=== PATIENT | male | born 1945 | race Caucasian/White ===

== ENCOUNTER 2018-05-03 09:19 | Day surgery (SDC) | payer OTHER, SELFPAY ==
[2018-05-03 09:42] VITALS: BP 122/70; PULSE 63; RESP 16; TEMP 36.2; O2SAT 99
[2018-05-03] MEDS: SODIUM CHLORIDE 0.9% 1,000 ML 200 ML IV (09:49)
--- NOTE | 2018-05-03 09:58 | PM.HP.1 ---
History of Present Illness Date Patient Seen: 05/03/18 Time Patient Seen: 09:59 Chief complaint: colonoscopy [id number] Narrative: 72-year-old male with personal history of colon polyps approximately 15 years ago but had a follow-up surveillance colonoscopy 10 years ago reportedly normal and presents now for colorectal screening. He has no specific complaints currently. Denies nausea, vomiting, abdominal pain, change in appetite, unintended weight loss, change in bowel habits, diarrhea, constipation, melena, hematochezia, or bright red blood per rectum. 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 (Acute) Depression (Acute) Diverticulosis (Acute) Gastroesophageal reflux disease (Acute) History of Moh's micrographic surgery for skin cancer (Acute) History of cholelithiasis (Acute) History of colon polyps (Acute) History of migraine headaches (Acute) History of nephrolithiasis (Acute) Hypertension (Acute) Premature ventricular contractions (Acute) Presbycusis (Acute) Surgical History History of colonoscopy (Acute) History of tonsillectomy and adenoidectomy (Acute) Status post cholecystectomy (Acute) Family & Social History Family History: Reviewed 05/03/18 by Liang Jerez MD Social History: Non smoker Drinks 3 glasses of wine daily Meds Home Medications Medication Instructions Recorded Confirmed Type lisinopril-hydrochlorothiazide 1.5 tab PO QAM #135 tab 01/22/17 Rx sildenafil (antihypertensive) 20 mg PO SEE INSTRUCTIONS #60 tab 03/10/17 Rx Allergies Allergy/AdvReac Type Severity Reaction Status Date / Time No Known Drug Allergies Allergy Verified 05/03/18 09:42 Review of Systems Review of Systems All systems reviewed & are unremarkable except as noted in HPI and below Exam Vital Signs (past 8 hours): - 05/03/18 09:42 Temperature 97.2 F L Pulse Rate 63 Respiratory Rate 16 Blood Pressure 122/70 H Pulse Oximetry 99 Oxygen Delivery Method Room Air Narrative Exam Narrative: Well-nourished well-developed male in no acute distress. Alert oriented x3. Sclera nonicteric Neck is supple Chest clear to auscultation bilaterally with irregular rhythm. Has an occasional PVC. No murmurs, gallops, rubs. No crackles or wheezes. Abdomen soft, nondistended, nontender, no masses Extremities show no clubbing, cyanosis, or edema Objective Labs Labs: No recent laboratory or radiographic studies for review Assessment & Plan Plan: Assessment/Plan Narrative: 72-year-old male with personal history of colon polyps now requiring colorectal surveillance. I recommend colonoscopy. Technical details of the procedure were discussed. Risks, benefits, alternatives were explained. Risks including but not limited to sedation, aspiration, bleeding, pain, missed lesion, incomplete examination, need for further radiographic studies, colonic perforation, need for major abdominal surgery, and all attendant risks of major surgery were explained in detail. All questions were answered to his satisfaction, and he voiced understanding. Consent was placed on the chart. We will proceed as above.
--- NOTE | 2018-05-03 10:06 | PM.PREOP ---
Pre-operative Note Interval Note Pre-op Check: History & Physical Reviewed by Physician, Exam Performed and History & Physical exam performed today H&P completed within 30 days and has changed as indicated here:: Patient seen and examined today. He has a personal history of colon polyps. He requires colorectal surveillance for such. History physical examination documented and placed on the chart. We will proceed with colonoscopy today as planned. ASA Class (for procedural sedation): II
[2018-05-03] MEDS: MIDAZOLAM 5 MG/5 ML VIAL IV (10:27)
[2018-05-03] MEDS: fentaNYL 250 MCG/5 ML INJ IV (10:27)
--- NOTE | 2018-05-03 10:37 | PM.OP.ENDO ---
Operative Date/Time/Diagnoses Date of procedure: 05/03/18 Time of procedure: 10:37 Post-op diagnosis: other (Diverticulosis but otherwise normal colon and rectum) Procedure & Clinicians Study performed: 1. Sedation per surgeon 2. Colonoscopy Same procedure as scheduled: Yes Indications: 72-year-old male with personal history of colon polyps. It has been at least 10 years since his prior examination. He requires colorectal surveillance. Colonoscopy is once again recommended. Surgeon: Liang Jerez Procedure Notes SCOAP/Timeout: Yes Procedure in detail: After obtaining informed consent, the patient was brought to the GI suite and placed in the left lateral decubitus position on the examination table. After placement of appropriate monitors, the patient was given incremental doses of Versed and Fentanyl until an appropriate level of sedation was achieved. A time out was held per SCOAP protocol. A digital rectal examination was performed and did not reveal any masses or obstructing lesions. The colonoscope was gently passed into the patient's anus and the entire colon navigated to the level of the cecum with minimal difficulty. Once in the cecum, the scope was withdrawn being sure to go before and beyond all mucosal folds and prominences and get an excellent examination. The findings are noted above. At the level of the rectal vault, the scope was retroflexed and the internal anal canal was examined. The scope was straightened and air aspirated from the colon. The instrument was removed from the patient's body and the procedure was concluded. The patient was allowed to awaken from sedation without difficulty and taken to the post-anesthesia care unit in good condition. Scope withdrawal time: 9:30 Min Sedation minutes: 28 Findings: diverticulosis and other findings (Otherwise normal colon and rectum within the limits of a suboptimal bowel preparation at the distal sigmoid colon) Specimen(s): none sent Complications: none Recommendations: Colonscopy in 5 years and High fiber diet Plan for aftercare: 1. Discharge home Follow up: as needed Disposition: PACU
[2018-05-03 10:38] VITALS: BP 110/65; PULSE 80; RESP 15; TEMP 36.4; O2SAT 95
[2018-05-03 10:43] VITALS: BP 107/65; PULSE 66; RESP 13; TEMP 36.4; O2SAT 94
[2018-05-03 10:48] VITALS: BP 103/65; PULSE 74; RESP 14; TEMP 36.4; O2SAT 96
[2018-05-03 10:55] VITALS: BP 106/72; PULSE 69; RESP 18; TEMP 36.3; O2SAT 96
[2018-05-03 11:11] VITALS: BP 107/65; PULSE 66; RESP 16; TEMP 36.9; O2SAT 97
== END 2018-05-03 11:20 | disposition home or self-care (01) ==
PROVIDERS: Visit Provider Surgery
PROC: 0DJD8ZZ Inspection of Lower Intestinal Tract, Via Natural or Artificial Opening Endoscopic (ICD-10-PCS; CPT 45378; principal; 2018-05-03 11:00)
DX: Z86.010 Personal history of colon polyps (principal); K57.30 Diverticulosis of large intestine without perforation or abscess without bleeding; K21.9 Gastro-esophageal reflux disease without esophagitis; I10 Essential (primary) hypertension; F41.9 Anxiety disorder, unspecified
CPT/HCPCS: G0105; 99152; 99153; J2250; J3010

== ENCOUNTER → 2021-07-16 10:37 | Outpatient (CLI) | payer MEDICARE, OTHER, SELFPAY ==
[2021-07-16 20:27] LABS: COVID19 - ORCAS (NP or Nasal) POSITIVE (Negative)
== END ==
PROVIDERS: PCP Family Medicine; Visit Provider Physician Assistant
DX: U07.1 COVID-19 (principal)
CPT/HCPCS: C9803; U0003

== ENCOUNTER → 2021-10-14 08:46 | Outpatient (CLI) | payer MEDICARE, OTHER, SELFPAY ==
[2021-10-14 20:46] LABS: COVID19 - ORCAS (NP or Nasal) Negative (Negative)
== END ==
PROVIDERS: PCP Family Medicine; Visit Provider Family Medicine
DX: U07.1 COVID-19 (principal)
CPT/HCPCS: C9803; U0003

== ENCOUNTER 2021-10-15 11:05 | Day surgery (SDC) | payer MEDICARE, OTHER, SELFPAY ==
--- NOTE | 2021-10-15 | PATH_ITS ---
[facility] Accession Number: [id number] . 01 Material submitted: . PART A: duodenum - DUODENUM BIOPSY PART B: gastrointestinal site - ANTRUM BIOPSY PART C: gastrointestinal site - GASTRIC POLYP PART D: colon - CECUM POLYP X2 . 01 Clinical history: . SDC . 02 Diagnosis: A. Duodenum, Biopsy: Duodenal mucosa with no diagnostic abnormality. Negative for active inflammation, features of sprue, dysplasia, or malignancy. . B. Stomach, Antrum, Biopsy: Antral mucosa with no diagnostic abnormality. Negative for Helicobacter by immunohistochemistry. Negative for intestinal metaplasia. Negative for dysplasia and malignancy. . C. Stomach, Polyp, Biopsy: Body-type mucosa with a few dilated glands, consistent with fundic gland polyp. No evidence of Helicobacter on H/E stain. Negative for intestinal metaplasia. Negative for dysplasia and malignancy. . D. Cecum, Polyp x2, Biopsy: Tubular adenoma with high-grade dysplasia in one of two fragments. Tubular adenoma in one fragment. Please see comment. No evidence of invasive carcinoma. MRV 10/23/2021 1524 Local . 02 Comment: D. As part of routine quality intern, Dr. Collier also reviewed part D of this case and agrees with the diagnosis. . . 02 Electronically signed: . Barbara Hinton MD, Pathologist NPI- [id number] . 01 Gross description: . Part A: DUODENUM BIOPSY: Received in formalin is 1 fragment(s) of padilla, soft tissue measuring 0.3 x 0.3 x 0.2 cm submitted entirely in 1 cassette(s) Part B: ANTRUM BIOPSY: Received in formalin is 1 fragment(s) of padilla, soft tissue measuring 0.1 x 0.1 x 0.1 cm submitted entirely in 1 cassette(s) Part C: GASTRIC POLYP: Received in formalin are 3 fragment(s) of padilla, soft tissue measuring 0.1 x 0.1 x 0.1 cm to 0.2 x 0.2 x 0.2 cm submitted entirely in 1 cassette(s) Part D: CECUM POLYP X2: Received in formalin are 2 fragment(s) of padilla, soft tissue measuring 0.5 x 0.4 x 0.2 cm to 0.7 x 0.6 x 0.6 cm submitted entirely in 1 cassette(s) /RADHA 10/16/2021 1903 Local . 02 Microscopic: . B. An immunohistochemical stain was performed to evaluate for Helicobacter organisms and is negative. The control stain showed appropriate reactivity. . * This test was developed and its performance characteristics determined by [facility]. It has not been cleared or approved by the U.S. Food and Drug Administration. The FDA has determined that such clearance or approval is not necessary. This test is used for clinical purposes. It should not be regarded as investigational or for research. . 02 Pathologist provided ICD-10: D12.0, R15.9 . 02 CPT . 273475, 172368, 691668, 214577, C82445 Performed at: 01 [facility] [address], [place], [place] [id number] MD Cal Morrissey MD Phone: [phone] Performed at: 02 [facility] [address] [place], [place] [id number] MD Barbara Hinton MD Phone: [phone]
[2021-10-15 11:35] VITALS: BP 149/84; PULSE 72; RESP 18; TEMP 36.6; O2SAT 98; BMI 26.4
--- NOTE | 2021-10-15 11:48 | SUR.PREOP ---
Pt states he is seeing a brake engineer for concerns of atrial fribrillation. RRR S1S2 to auscaltation.
[2021-10-15] MEDS: SODIUM CHLORIDE 0.9% 1,000 ML 84 ML IV (12:00)
--- NOTE | 2021-10-15 12:19 | PM.HP.1 ---
History of Present Illness History of Present Illness Date Patient Seen: 10/15/21 Time Patient Seen: 12:19 Chief complaint: SDC Narrative: I reviewed my note from September 02. No significant changes. 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 Depression Diverticulosis Gastroesophageal reflux disease History of cholelithiasis History of colon polyps History of migraine headaches History of Moh's micrographic surgery for skin cancer History of nephrolithiasis Hypertension Premature ventricular contractions Presbycusis Surgical History History of colonoscopy History of tonsillectomy and adenoidectomy Status post cholecystectomy Family & Social History Social History: household members significant other Tobacco & Substance use: Smoking Status Never smoker alcohol intake frequency 3 or more drinks per day Substance Use Type marijuana Meds Home Medications and Allergies Home Medications Medication Instructions Recorded Confirmed Type lisinopril 20 1.5 tab PO QAM #135 tab 01/22/17 10/15/21 Rx mg-hydrochlorothiazide 25 mg tablet tamsulosin 10/15/21 History vitamins A,C,G-cieo-xsirya 7,160 2 tab PO BID 10/15/21 10/15/21 History unit-113 mg-100 unit tablet (PreserVision AREDS) Allergies Allergy/AdvReac Type Severity Reaction Status Date / Time No Known Drug Allergies Allergy Verified 05/03/18 09:42 Review of Systems Review of Systems ROS: Yes All systems reviewed with the patient and are negative except as otherwise documented Exam Vital Signs (past 8 hours): - 10/15/21 11:35 Temperature 98 F Pulse Rate 72 Respiratory Rate 18 Blood Pressure 149/84 H Pulse Oximetry 98 Oxygen Delivery Method Room Air Const General: cooperative and comfortable Orientation: alert HENMT Head: normocephalic Ears: external ears normal Nose: external nose normal Face and sinus: normal facial exam Mouth: oral mucosae normal Eyes General: appearance normal, both eyes and all related structures Neck Neck: normal visual inspection Chest Chest: normal inspection of the chest Resp Effort & Inspection: normal respiratory effort Cardio Rate: regular rate GI Inspection: normal to inspection Skin General: no rashes or lesions noted and No jaundice Neuro General: patient alert and moves all extremities Cognition: normal cognition Speech: speech normal Extrem General: no pedal edema Psych Appearance: grossly normal Assessment & Plan Assessment & Plan narrative: 76-year-old male with dysphagia. He also has intermittent fecal incontinence. He has a personal history of colon polyps. EGD and colonoscopy are pursued today. Time Spent With Patient Critical Care time: I spent a total of [] minutes of critical care time on this patient's care today; this time is exclusive of procedural time.
--- NOTE | 2021-10-15 12:21 | PM.PREOP ---
Pre-operative Note COVID-19 COVID-19 status: Negative Result date/Date tested (Pos, Neg/Pending): 10/14/21 Interval Note History & Physical reviewed/Exam performed by Physician: Yes Changes to H&P: No ASA Class (for procedural sedation): II
--- NOTE | 2021-10-15 13:54 | PM.OP.EC ---
Operative Date/Time/Diagnoses Date of procedure: 10/15/21 Time of procedure: 13:54 Pre-op diagnosis: Dysphagia and fecal incontinence Post-op diagnosis: same Procedure & Clinicians Study performed: EGD with biopsies and colonoscopy with hot snare polypectomy Same procedure as scheduled: Yes Indications: Dysphagia and fecal incontinence Surgeon: Reynaldo Medina Procedure Notes SCOAP/Timeout: Done Procedure in detail: After the risks and benefits were explained, written and verbal informed consent was obtained. The patient was brought into the procedure room and placed into the left lateral decubitus position. Please see nurse head custodian notes for sedation details. The scope was introduced into the mouth through the bite block and advanced under direct visualization to the 2nd portion of the duodenum. The scope was slowly withdrawn carefully examining the mucosa for any defects or lesions. Retroflexed views were accomplished in the stomach. The stomach was decompressed, the scope was then removed from the patient who tolerated the procedure well. The patient was then turned around a digital rectal examination had already been performed prior to initiation of sedation for the above exam. Patient had reasonable rectal tone. He has external anal sphincter squeeze capability but it was subjectively slightly weak. No mass lesions no strictures no fissures. The scope was introduced into the rectum and advanced to the cecum as identified by the appendiceal orifice and ileocecal valve. The scope was slowly withdrawn to carefully examine the mucosa for any defects lesions. Multiple direct views were made through the dentate line for exclusion of pathology the colon was decompressed scope removed the patient tolerated the procedure well. Bowel prep adequate A colonoscope Scope withdrawal time: 10 minutes Sedation minutes: 33 Complications: none Impression: 1. Duodenum there were some patchy areas suggestive of subtle erosion in the 2nd portion of the duodenum and biopsies were acquired for histology. 2. Stomach: Mild gastropathy was appreciated throughout no ulcers no mass lesions no outlet obstruction. Antral biopsies were taken for exclusion of Helicobacter pylori. A couple of diminutive polyps were addressed from the mid body. Retroflexed views of the LES were unremarkable. 3. Esophagus: The squamocolumnar junction correlated with the top of the gastric folds. The GE junction was at 45 cm from the incisors. Patient had LA grade a erosive esophagitis the remainder of the esophagus was unremarkable with the exception of perhaps possible proximal subtle white plaques. We did not have a brush available today an Endo to send a WARD wet prep specimen. 4. Colon: Patient had extensive diverticulosis throughout the sigmoid. He had a lengthy redundant colon and achieving cecal intubation was a little challenging at the very end. In the cecum there was a diminutive 5 mm polyp removed with hot snare. This polyp was lost in the debris afterwards and not retrieved but was removed. In the cecum there was a larger perhaps 1 cm sessile polyp that was removed with hot snare polypectomy this was retrieved and submitted for histology. No additional pathology was appreciated throughout. Endoscopic diagnosis 1. LA grade a erosive esophagitis 2. Gastropathy 3. Gastric polyps 4. Mild duodenopathy 5. Diverticulosis 6. Colon polyps 7. Acceptable resting anal sphincter tone Post-procedure Plan for aftercare: 1. Await histopathology 2. Continue fiber based bowel regimen for soft regular stools. 3. Start mzcx-gxl-srlxqmp 20 mg omeprazole daily 4. Follow up GI clinic in 6 weeks time. 5. Should there be any symptoms of odynophagia or persisting symptoms of dysphagia, an empiric course of fluconazole could be considered. Disposition: PACU
[2021-10-15 13:58] VITALS: BP 104/60; PULSE 65; RESP 11; TEMP 36.5; O2SAT 95
[2021-10-15 14:08] VITALS: BP 118/78; PULSE 67; RESP 17; O2SAT 95
[2021-10-15 14:13] VITALS: BP 127/77; PULSE 62; RESP 20; O2SAT 96
[2021-10-15 14:30] VITALS: BP 125/78; PULSE 68; RESP 18; TEMP 37.3; O2SAT 97
--- NOTE | 2021-10-15 14:54 | SUR.PHASEII ---
10/15/[id number] CRITERIA FOR DISCHARGE FROM PHASE 2 TO HOME. DENIES PAIN,NAUSEA. TOLERATED CRANBERRY JUICE.IV OUT. PT GIVEN POST INSTRUCTIONS AND HAS ALL BELONGINGS. VSS. DRESSED AND AWAITING RIDE. HAS FERRY PASS AND ALL BELONGINGS. 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
== END 2021-10-15 15:04 | disposition home or self-care (01) ==
PROVIDERS: PCP Family Medicine; Referring Provider Internal Medicine Gastroenterology; Visit Provider Internal Medicine Gastroenterology
PROC: 0DJ08ZZ Inspection of Upper Intestinal Tract, Via Natural or Artificial Opening Endoscopic (ICD-10-PCS; CPT 43235; principal; 2021-10-15 13:00)
PROC: 0DJD8ZZ Inspection of Lower Intestinal Tract, Via Natural or Artificial Opening Endoscopic (ICD-10-PCS; CPT 45378; 2021-10-15 13:00)
DX: R15.9 Full incontinence of feces (principal); Z86.010 Personal history of colon polyps; R10.13 Epigastric pain; Z86.16 Personal history of COVID-19; I10 Essential (primary) hypertension; F32.9 Major depressive disorder, single episode, unspecified; K21.00 Gastro-esophageal reflux disease with esophagitis, without bleeding; K57.30 Diverticulosis of large intestine without perforation or abscess without bleeding; K31.9 Disease of stomach and duodenum, unspecified; K31.7 Polyp of stomach and duodenum; D12.0 Benign neoplasm of cecum
CPT/HCPCS: 45385; 43239; J2704

== ENCOUNTER → 2022-09-05 07:03 | Outpatient (CLI) | payer MEDICARE, OTHER, SELFPAY ==
[2022-09-05 19:19] LABS: COVID19 - ORCAS (NP or Nasal) Negative (Negative)
== END ==
PROVIDERS: PCP Family Medicine; Visit Provider Family Medicine
DX: Z20.822 Contact with and (suspected) exposure to COVID-19 (principal)
CPT/HCPCS: C9803; U0003

== ENCOUNTER 2022-09-08 10:45 | Day surgery (SDC) | payer MEDICARE, OTHER, SELFPAY ==
--- NOTE | 2022-09-08 | PATH_ITS ---
[facility] Accession Number: [id number] . 01 Material submitted: . gastrointestinal site - ANTRUM BIOPSY . 01 Diagnosis: A. Gastric Antrum, Biopsy: Gastric antral-type mucosa with reactive/chemical gastropathy. Gastric transitional-type mucosa within normal limits. No evidence of intestinal metaplasia or dysplasia. No evidence of Helicobacter pylori organisms seen on H/E. MRV 09/12/2022 0848 Local . 01 Electronically signed: . Carli Castillo MD, Pathologist NPI- [id number] . 01 Gross description: . ANTRUM BIOPSY: Received in formalin are 2 fragment(s) of padilla, soft tissue measuring 0.3 x 0.1 x 0.1 cm to 0.2 x 0.1 x 0.1 cm submitted entirely in 1 cassette(s) /CPE 09/10/2022 0709 Local . 01 Pathologist provided ICD-10: Z12.0 . 01 CPT . 642942 Specimen Comment: A courtesy copy of this report has been sent to [phone] Performed at: 01 [facility] [address] [place] [address], [place], [place] [id number] MD Cal Morrissey MD Phone: [phone]
--- NOTE | 2022-09-08 11:04 | PM.HP.1 ---
History of Present Illness History of Present Illness Date Patient Seen: 09/08/22 Time Patient Seen: 11:05 Chief complaint: SDC Narrative: Patient had a rough July. Upper abdominal pains. He is improved in August but still had 2 episodes of breakthrough dysphagia and chest pain. He is on omeprazole in the morning and then before bed. 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 Depression Diverticulosis Gastroesophageal reflux disease History of cholelithiasis History of colon polyps History of migraine headaches History of Moh's micrographic surgery for skin cancer History of nephrolithiasis Hypertension Premature ventricular contractions Presbycusis Surgical History History of colonoscopy History of tonsillectomy and adenoidectomy Status post cholecystectomy Family & Social History Social History: household members significant other Tobacco & Substance use: Smoking Status Never smoker alcohol intake frequency 3 or more drinks per day Substance Use Type marijuana Meds Home Medications and Allergies Home Medications Medication Instructions Recorded Confirmed Type lisinopril 20 1.5 tab PO QAM #135 tabs 01/22/17 09/08/22 Rx mg-hydrochlorothiazide 25 mg tablet tamsulosin 0.4 mg PO DAILY 10/15/21 09/08/22 History vitamins A,C,P-nqlf-wrvuze 2,148 2 tab PO BID 10/15/21 09/08/22 History mcg-113 mg-45 mg-17.4 mg tablet (PreserVision AREDS) Allergies Allergy/AdvReac Type Severity Reaction Status Date / Time No Known Drug Allergies Allergy Verified 09/08/22 10:09 Review of Systems Review of Systems ROS: Yes All systems reviewed with the patient and are negative except as otherwise documented Exam Const General: cooperative HENMT Head: normal to inspection Eyes General: appearance normal, both eyes and all related structures Neck Neck: normal visual inspection Chest Chest: normal inspection of the chest Resp Effort & Inspection: normal respiratory effort Cardio Rate: regular rate GI Inspection: normal to inspection Skin General: no rashes or lesions noted Neuro General: patient alert and patient awake Extrem General: normal to inspection and no pedal edema Psych Appearance: grossly normal Assessment & Plan Assessment & Plan narrative: 76-year-old male with a personal history of advanced adenoma with high-grade dysplasia in the cecum indicated for follow-up. He also has abdominal pain intermittent dysphagia and chest pain that have occurred despite standard dose PPI. He had LA grade a erosive esophagitis at his last exam. Both EGD and colonoscopy are therefore pursued today. Time Spent With Patient Critical Care time: I spent a total of [] minutes of critical care time on this patient's care today; this time is exclusive of procedural time.
--- NOTE | 2022-09-08 11:07 | PM.PREOP ---
Pre-operative Note COVID-19 COVID-19 status: Negative Result date/Date tested (Pos, Neg/Pending): 09/05/22 Criteria for continued procedure: Possibility delay results in more complex future surgery or treatment Interval Note History & Physical reviewed/Exam performed by Physician: Yes Changes to H&P: Yes ASA Class (for procedural sedation): II
[2022-09-08 11:17] VITALS: BP 154/79; PULSE 74; RESP 16; TEMP 36.7; O2SAT 96; BMI 27.1
[2022-09-08] MEDS: SODIUM CHLORIDE 0.9% 1,000 ML 84 ML IV (11:31)
[2022-09-08 12:58] VITALS: BP 115/63; PULSE 69; RESP 16; TEMP 36.4; O2SAT 94
--- NOTE | 2022-09-08 12:58 | P.OP.EGD&C_ITS ---
Operative Date/Time/Diagnoses Date of procedure: 09/08/22 Time of procedure: 12:58 Pre-op diagnosis: Personal history of colon polyp and ongoing symptoms of chest pain abdominal pain dysphagia despite PPI. Post-op diagnosis: same Procedure & Clinicians Study performed: EGD with biopsies and colonoscopy Same procedure as scheduled: Yes Indications: Personal history of colon polyp and ongoing symptoms of chest pain abdominal pain dysphagia despite PPI. Surgeon: Reynaldo Medina Procedure Notes SCOAP/Timeout: Done Procedure in detail: After the risks and benefits were explained, written and verbal informed consent was obtained. The patient was brought into the procedure room and placed into the left lateral decubitus position. Please see nurse radio sales account executive notes for sedation details. The scope was introduced into the mouth through the bite block and advanced under direct visualization to the 2nd portion of the duodenum. The scope was slowly withdrawn carefully examining the mucosa for any defects or lesions. Retroflexed views were accomplished in the stomach. The stomach was decompressed, the scope was then removed from the patient who tolerated the procedure well. The patient was then turned around a digital rectal examination accomplished no significant pathology appreciated. The scope was introduced into the rectum and advanced to the cecum as identified by the appendiceal orifice and ileocecal valve. The terminal ileum was interrogated. The scope was then slowly withdrawn to carefully examine the mucosa for any defects or lesions. Multiple direct views were made through the dentate line for exclusion of pathology. The colon was decompressed. The scope was removed from the patient who tolerated the procedure well. Adult colonoscope Bowel prep adequate Scope withdrawal time: 10 minutes Sedation minutes: 32 Complications: none Impression: 1. Esophagus: There were fairly classic scattered white plaque like debris all throughout the upper esophagus. The GE junction was at 46 cm from the incisors. No evidence of any stricture no mass lesion no sign of any inflammation. The endoscopy lab did not have a cytology brush available. 2. Stomach: Mild erythema was noted in the antrum biopsies were acquired for exclusion of H pylori. There was a slightly hypopigmented area perhaps 15 mm in greatest dimension that was included in the biopsy specimens. Retroflexed views of the LES were otherwise unremarkable. I did not repeat biopsies of the diminutive polyps that were historically fundic gland polyps. 3. Duodenum: This was visually unremarkable from the bulb through to the 2nd portion. 4. Terminal ileum: This was visually normal. 5. Colon: There was no evidence of any residual or recurrent polyp anywhere within the cecum. No pathology was appreciated in the remainder of the examined colon either. Some diverticulosis was noted in the sigmoid. The patient had a fairly redundant lengthy colon. Endoscopic diagnosis 1. Mild gastropathy 2. Probable mild proximal esophageal candidiasis 3. Diminutive gastric polyps 4. Diverticulosis 4. No recurrent colon polyps identified Post-procedure Plan for aftercare: 1. Await histopathology. 2. Consider empiric course of fluconazole. 3. Repeat colonoscopy 3 years. Disposition: PACU
[2022-09-08 13:03] VITALS: BP 107/63; PULSE 68; RESP 19; O2SAT 94
[2022-09-08 13:08] VITALS: BP 120/65; PULSE 74; RESP 19; O2SAT 96
[2022-09-08 13:13] VITALS: BP 124/65; PULSE 71; RESP 19; TEMP 36.5; O2SAT 95
[2022-09-08 13:18] VITALS: BP 115/73; PULSE 71; RESP 20; TEMP 36.6; O2SAT 96
== END 2022-09-08 13:40 | disposition home or self-care (01) ==
PROVIDERS: PCP Family Medicine; Referring Provider Internal Medicine Gastroenterology; Visit Provider Internal Medicine Gastroenterology
PROC: 0DJ08ZZ Inspection of Upper Intestinal Tract, Via Natural or Artificial Opening Endoscopic (ICD-10-PCS; CPT 43235; principal; 2022-09-08 11:00)
PROC: 0DJD8ZZ Inspection of Lower Intestinal Tract, Via Natural or Artificial Opening Endoscopic (ICD-10-PCS; CPT 45378; 2022-09-08 11:00)
DX: R10.9 Unspecified abdominal pain (principal); R07.9 Chest pain, unspecified; R13.10 Dysphagia, unspecified; Z86.010 Personal history of colon polyps; K31.9 Disease of stomach and duodenum, unspecified; K31.7 Polyp of stomach and duodenum; K57.30 Diverticulosis of large intestine without perforation or abscess without bleeding
CPT/HCPCS: 43239; 45378; J2704

== ENCOUNTER → 2025-02-23 11:54 | Outpatient (CLI) | payer MEDICARE, SELFPAY ==
--- NOTE | 2025-02-23 11:56 | DI.MRI.S_ITS ---
PROCEDURE: MR SHOULDER LT WO CON INDICATIONS: Rotator cuff tear TECHNIQUE: Noncontrast oblique coronal T2 fast spin echo with fat saturation, oblique sagittal T1 spin echo and T2 fast spin echo with fat saturation, axial T1 spin echo and T2 fast spin echo with fat saturation through the shoulder. COMPARISON: None. FINDINGS: Image quality: Excellent. Rotator cuff: In the supraspinatus, there is full-thickness, full width tear at the footprint. Tendon retraction supraspinatus to the level of the mid humeral head. The infraspinatus is unremarkable. The teres minor is unremarkable. The subscapularis is unremarkable. No muscle edema or fatty atrophy. 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 Type 2 acromion. No os acromiale. Mild subacromial/subdeltoid bursitis. Mild subchondral cystic changes at the posterior greater tuberosity, reactive. No acute fracture. Small area of high-grade chondral loss in the superior glenoid. Capsule and soft tissues: Superior labral tear, extending anteriorly to the anterior superior labrum. No paralabral cyst. Mild tenosynovitis of the extra-articular biceps tendon. The intra-articular biceps tendon is unremarkable. Small glenohumeral effusion. Mild subcoracoid bursitis. No intra-articular body. IMPRESSION: 1. Full-thickness, full width tear of the supraspinatus with tendon retraction. 2. 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 3. Labral tear. 4. Mild tenosynovitis of the extra-articular biceps tendon. Dictated by: Natalie Berry M.D. on 02/23/2025 at 14:42 Approved by: Natalie Berry M.D. on 02/23/2025 at 14:50
== END ==
PROVIDERS: PCP Family Medicine; Referring Provider Family Medicine; Visit Provider Family Medicine
DX: M75.122 Complete rotator cuff tear or rupture of left shoulder, not specified as traumatic (principal); S43.492A Other sprain of left shoulder joint, initial encounter; M65.922 Unspecified synovitis and tenosynovitis, left upper arm
CPT/HCPCS: 73221